=== PATIENT | female | born 1990 | race Caucasian/White ===

== ENCOUNTER 2018-01-18 18:01 | Emergency (ER) | payer OTHER ==
[2018-01-18] MEDS ORDERED: ALBUTEROL SO4 2.5/IPRATROPIUM 0.5 INH SOL 3 ML VIAL.NEB. NEB ONE ×2 (18:18→19:21)
[2018-01-18 18:22] VITALS: BP 142/82; PULSE 116; TEMP 98.4; BMI 25.7
--- NOTE | 2018-01-18 18:24 | PDOC ---
Rapid Medical Evaluation Chief Complaint: Cold Symptoms Time Seen by Provider: 01/18/18 18:16 Medical Evaluation: 01/18/18 18:16 27 year old female with cough nasal congestion and SOB. reports tactile temps at home denies smoking, recent travel. PE: Patient alert ox3. + wheezing A: uri with cough P: duoneb urine chest xray patient to the ER for further management, Discharge Disposition - Diagnosis URI with cough and congestion - Referrals - Patient Instructions - Post Discharge Activity
--- NOTE | 2018-01-18 19:42 | PDOC ---
History of Present Illness - General Chief Complaint: Shortness of Breath Stated Complaint: Cold Symptoms Time Seen by Provider: 01/18/18 18:16 History Source: Patient Exam Limitations: No Limitations - History of Present Illness Initial Comments: 01/18/18 19:33 HISTORY OF PRESENT ILLNESS: This a 27-year-old woman past medical history of depression who presents emergency Department with 2 weeks of nasal congestion, cough, subjective fevers and sore throat. Patient has been taking over-the- counter medications such as NyQuil patient had minimal relief of symptoms. Patient became concerned when she herself audibly wheezing today prior to coming to the emergency department. She denies feeling short of breath, chest pain, headaches, dizziness, abdominal pain, nausea, vomiting. No recent travel or sick contacts. PAST MEDICAL HISTORY: depression SURGICAL HISTORY: Denies ALLERGIES: No known drug allergies REVIEW OF SYSTEMS General/Constitutional: Subjective fevers. Denies chills. Denies weakness, weight change. HEENT: Denies change in vision. Denies ear pain or discharge. Endorses sore throat. Cardiovascular: Denies chest pain or shortness of breath. Respiratory: Reports dry non-productive cough with audible wheezing. Denies hemoptysis. Gastrointestinal: Denies nausea, vomiting, diarrhea or constipation. Denies rectal bleeding. Genitourinary: Denies dysuria, frequency, or change in urination. Musculoskeletal: Denies joint or muscle swelling or pain. Denies neck or back pain. Skin and breasts: Denies rash or easy bruising. Neurologic: Denies headache, vertigo, loss of consciousness, or loss of sensation. Psychiatric: Denies depression or anxiety. Endocrine: Denies increased thirst. Denies abnormal weight change. Hematologic/Lymphatic: Denies anemia, easy bleeding, or history of blood clots. Allergic/Immunologic: Denies hives or skin allergy. Denies latex allergy. PHYSICAL EXAM General Appearance: Well-appearing, appropriately dressed. No apparent distress , no intoxication. HEENT: EOMI, PERRLA, normal ENT inspection, normal voice, pharynx normal. No conjunctival pallor. No photophobia, scleral icterus. TMs with retractions bilaterally. No sinus tenderness. Neck: Supple. Trachea midline. No tenderness, rigidity, carotid bruit, stridor , lymphadenopathy, or thyromegaly. Respiratory/Chest: Lungs CTAB. No shortness of breath, chest tenderness, respiratory distress, accessory muscle use. No crackles, rales, rhonchi, stridor , dullness. Scattered wheezes. Cardiovascular: RRR. S1, S2. No JVD, murmur, bradycardia, tachycardia. Vascular Pulses: Dorsalis-Pedis (R): 2+, Dorsalis-Pedis (L): 2+ Gastrointestinal/Abdominal: Normal bowel sounds. Abdomen soft, non-distended. No tenderness or rebound tenderness. No organomegaly, pulsatile mass, guarding, hernia, hepatomegaly, splenomegaly. Lymphatic: No adenopathy, tenderness. Musculoskeletal/Extremities: Normal inspection. FROM of all extremities, normal capillary refill. Pelvis Stable. No CVA tenderness. No tenderness to extremities, pedal edema, swelling, erythema or deformity. Integumentary: Appropriate color, dry, warm. No cyanosis, erythema, jaundice or rash Neurologic: senior business analyst II-XII intact. Fully oriented, alert. Appropriate mood/affect. Motor strength 5/5. No appreciable EOM palsy, facial droop or sensory deficit. Past History - Past Medical History Allergies/Adverse Reactions: Allergies Allergy/AdvReac Type Severity Reaction Status Date / Time No Known Allergies Allergy Verified 01/18/18 18:17 Home Medications: Ambulatory Orders NK [No Known Home Medication] 01/18/18 COPD: No - Suicide/Smoking/Psychosocial Hx Smoking History: Never smoked *Physical Exam - Vital Signs Last Vital Signs Temp Pulse Resp BP Pulse Ox 98.4 F 116 H 22 H 142/82 94 L 01/18/18 18:20 01/18/18 18:20 01/18/18 18:20 01/18/18 18:20 01/18/18 18:20 ED Treatment Course - ADDITIONAL ORDERS Additional order review: Laboratory Results 01/18/18 19:00 Urine HCG, Qual Negative - Medications Given in the ED: ED Medications Discontinued Medications Generic Name Dose Route Start Last Admin Trade Name Freq PRN Reason Stop Dose Admin Albuterol/Ipratropium 1 amp 01/18/18 18:18 01/18/18 18:21 Duoneb - NEB 01/18/18 18:19 1 amp ONCE ONE Administration Medical Decision Making - Medical Decision Making 01/18/18 20:18 A/P: 27-year-old woman past medical history of depression with 2 weeks of upper respiratory symptoms TMs with retractions noted bilaterally Nasal congestion present with inflamed nasal turbinates Oropharynx erythematous with cobblestoning noted in the posterior oropharynx. No stridor noted Respirations even and unlabored Scattered wheezes present Patient most likely with a upper respiratory viral infection. Given length of symptoms I will perform a chest x-ray to rule out any pneumonia. DuoNeb's 3, chest x-ray, reassess Chest x-rays read by me: Angles clear. No focal consolidations or infiltrates noted. Cardiac silhouette is within normal limits. Repeat lung exam reveals no wheezing and clear lungs. Patient with an upper respiratory infection. I will discharge the patient home with symptomatic treatment which has been discussed with the patient verbalizes understanding of discharge instructions and treatment. Patient was satisfied with her care and all questions have been answered. *DC/Admit/Observation/Transfer Diagnosis at time of Disposition: URI with cough and congestion - Discharge Dispostion Disposition: HOME Condition at time of disposition: Stable Decision to Admit order: No - Referrals - Patient Instructions Additional Instructions: Rest, drink lots of fluids: Teas, water, soups, Pedialyte Saltwater gargles Steamy showers/seem to face break up mucus Avoid contact with others until fevers and cough resolved Lots of handwashing and good hygiene Continue [id number] medications for symptomatic relief Tylenol or Motrin for fever and pain Followup with private physician in one to 2 days as needed Return to emergency department for worsened symptoms, fevers, dehydration - Post Discharge Activity
== END 2018-01-18 20:24 | disposition home or self-care (01) ==
LOC: JERFT 18:01
PROC: 3E0F7GC Introduction of Other Therapeutic Substance into Respiratory Tract, Via Natural or Artificial Opening (ICD-10-PCS; principal; 2018-01-18)
DX: J06.9 Acute upper respiratory infection, unspecified (principal)
CPT/HCPCS: 71046-TC-FY; 84703; 99281-25; J7620

== ENCOUNTER 2018-09-03 10:34 | Inpatient (IN) | payer OTHER ==
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
[2018-09-03] MEDS ORDERED: SODIUM CHLORIDE 1,000 ML IV STA (10:43)
[2018-09-03 10:51] VITALS: BMI 21.6
[2018-09-03 10:58] LABS: BASO % 0.8 % (0-2.0); EOS % 0.5 % (0-4.5); HEMATOCRIT 36.5 % (32.4-45.2); HEMOGLOBIN 12.1 GM/dL (10.7-15.3); LYMPH % 16.6 % (8-40); MCH 28.2 pg (25.7-33.7); MCHC 33.3 g/dl (32.0-36.0); MEAN CELL VOLUME 84.6 fl (80-96); MONO % 3.7 % (3.8-10.2); NEUT % 78.4 % (42.8-82.8); PLATELET COUNT 325 K/MM3 (134-434); RBC 4.31 M/mm3 (3.60-5.2); WHITE BLOOD COUNT 8.7 K/mm3 (4.0-10.0)
[2018-09-03 11:08] LABS: VENOUS PC02 35.1 mmHg (41-51); VENOUS PH 7.38 (7.31-7.41); VENOUS PO2 87.7 mmHg (30-40)
[2018-09-03 11:41] LABS: ALBUMIN 3.5 g/dl (3.4-5.0); ALK PHOS 66 U/L (45-117); ANION GAP 6 MMOL/L (8-16); BILIRUBIN,TOTAL 0.2 mg/dL (0.2-1); BLOOD UREA NITROGEN 12 mg/dL (7-18); CALCIUM 8.7 mg/dL (8.5-10.1); CHLORIDE 108 mmol/L (98-107); CO2 24 mmol/L (21-32); CREATININE 0.7 mg/dL (0.55-1.3); GLUCOSE,RANDOM 97 mg/dL (74-106); MAGNESIUM 2.4 mg/dL (1.8-2.4); POTASSIUM 4.2 mmol/L (3.5-5.1); SGOT/AST 13 U/L (15-37); SGPT/ALT 18 U/L (13-61); SODIUM 139 mmol/L (136-145); TOT PROT 6.5 g/dl (6.4-8.2)
--- NOTE | 2018-09-03 14:36 | HP ---
CHIEF COMPLAINT: lethargy, suspected drug overdose and suicidal attempt PCP: none HISTORY OF PRESENT ILLNESS: Patient sleepy but arousable, history obtained from patient, ED records and brother at bedside 28 yof with PMHx of anxiety, depression, (not on medications) brought in with concerns for drug overdose and suicidal attempt. Per records and family,patient's boyfriend of 5 years comitted suicide this AM. later today, patient was found confused, drowsy at her place by her family, with concerns for unknown drug ingestion from boyfriend's pill bottles. Patient currently waking up, answers questions on frequent reinforcement, states took 4 tablets of her boyfriend's xanax today as an attempt to kill herself. Denies any other drug ingestion or prior h/o IVDU. Last ETOH intake reported 2 weeks ago. ER course was notable for: (1) Poison control contacted (2) Psychiatry consulted, Dr. Parr Recent Travel: denies PAST MEDICAL HISTORY: reported anxiety/depression PAST SURGICAL HISTORY: denies Social History: Smoking: denies Alcohol: 'sometimes', no further elaboration Drugs: denies IVDU, cocaine/marihuana/heroine, Family History: Allergies No Known Allergies Allergy (Verified 09/03/18 10:42) HOME MEDICATIONS: Home Medications Medication Instructions Recorded NK [No Known Home Medication] 01/18/18 REVIEW OF SYSTEMS 12 point ROS attempted but limited given patient's lethargy. Denies a current pain or dyspnea. PHYSICAL EXAMINATION Vital Signs - 24 hr 09/03/18 09/03/18 09/03/18 10:43 11:09 13:47 Temperature 98.6 F 98.0 F Pulse Rate 76 Pulse Rate [ 67 Left] Respiratory 18 18 Rate Blood Pressure 108/70 Blood Pressure 102/73 [Left Arm] O2 Sat by Pulse 100 98 100 Oximetry (%) GENERAL: drowsy, woke up with deep sternal rub, keeps falling back to sleep but responds to most questions on repeat questioning HEAD: Normal with no signs of trauma. EYES: PERRL symmetric bilaterally EARS, NOSE, THROAT: Ears normal, nares patent, oropharynx clear without exudates. Moist mucous membranes. NECK: Normal range of motion, supple, no JVD noted LUNGS: decreased air entry but no rales or wheezing appreciated HEART: Regular rate and rhythm, normal S1 and S2 ABDOMEN: Soft, nontender, not distended, normoactive bowel sounds, no guarding, no rebound, no masses. No hepatomegaly or splenomegaly appreciated. MUSCULOSKELETAL: no spinal tenderness, moves all extremities freely, further exam limited UPPER EXTREMITIES: 2+ pulses, warm, well-perfused. No cyanosis. No clubbing. No peripheral edema. LOWER EXTREMITIES: 2+ pulses, warm, well-perfused. No calf tenderness. No peripheral edema. NEUROLOGICAL: drowsy, woke up with deep sternal rub, keeps falling back to sleep but responds to most questions on repeat questioning, facial symmetry, tongue midline, EOMI, moves all extremities symmetrically, DTR b/l symm, unable to check for sensations currently. Unable to check gait PSYCHIATRIC: opens eyes on loud voice and deep sternal rub, Pos suicidal ideation SKIN: extensive scabs/papules 0.5 cm scattered bilateralupper and lower extremities and face Laboratory Results - last 24 hr 09/03/18 09/03/18 09/03/18 10:45 10:45 10:45 WBC 8.7 RBC 4.31 Hgb 12.1 Hct 36.5 MCV 84.6 MCH 28.2 MCHC 33.3 RDW 14.0 Plt Count 325 MPV 9.0 Absolute Neuts (auto) 6.8 Neutrophils % 78.4 Lymphocytes % 16.6 Monocytes % 3.7 L Eosinophils % 0.5 Basophils % 0.8 Nucleated RBC % 0 VBG pH 7.38 POC VBG pCO2 35.1 L POC VBG pO2 87.7 H VBG HCO3 20.3 L VBG O2 Sat (Sammy) 96.6 H VBG Base Excess -3.6 L Sodium Potassium Chloride Carbon Dioxide Anion Gap BUN Creatinine Est GFR (CKD-EPI)AfAm Est GFR (CKD-EPI)NonAf Random Glucose Lactic Acid Calcium Magnesium Total Bilirubin AST ALT Alkaline Phosphatase Creatine Kinase Creatine Kinase Index CK-MB (CK-2) Troponin I Total Protein Albumin Serum , Qual Negative Salicylates Acetaminophen Alcohol, Quantitative 09/03/18 09/03/18 10:45 10:45 WBC RBC Hgb Hct MCV MCH MCHC RDW Plt Count MPV Absolute Neuts (auto) Neutrophils % Lymphocytes % Monocytes % Eosinophils % Basophils % Nucleated RBC % VBG pH POC VBG pCO2 POC VBG pO2 VBG HCO3 VBG O2 Sat (Sammy) VBG Base Excess Sodium 139 Potassium 4.2 Chloride 108 H Carbon Dioxide 24 Anion Gap 6 L BUN 12 Creatinine 0.7 Est GFR (CKD-EPI)AfAm 136.66 Est GFR (CKD-EPI)NonAf 117.91 Random Glucose 97 Lactic Acid 1.2 Calcium 8.7 Magnesium 2.4 Total Bilirubin 0.2 AST 13 L ALT 18 Alkaline Phosphatase 66 Creatine Kinase 191 Creatine Kinase Index 0.8 CK-MB (CK-2) 1.7 Troponin I < 0.02 Total Protein 6.5 Albumin 3.5 Serum , Qual Salicylates < 1.7 L Acetaminophen < 2.0 L Alcohol, Quantitative < 3.0 EKG NSR, no acute ST-T changes, QTc normal CT brain results reviewed, no acute process ASSESSMENT/PLAN: 28 yof with PMHx of anxiety, depression admitted with AMS, suspected benzodiazepine overdose and Suicidal ideation/attempt. -AMS, suspect encephalopathy from intentional drug overdose -Suspected Intentional benzodiazepine Overdose, r/o co-ingestion -Suicidal ideation/Attempt -Major depression -Anxiety Plan: Waking up, hemodynamics stable. Anion gap/renal function/QTc normal. Alcohol/salicylate/tylenol levels neg. Follow up full drug screen, straight cath for sample, discussed with ED. Poison control contacted from ED, monitor x 24 hours Psychiatry consulted from ED, case was discussed with Dr. Parr, anticipate inpatient psych placement once medical concerns resolve. 1:1, suicidal precautions. NPO, advance diet once mental status improves. IVF Inpatient telemetry. DVTPPx, lovenox Dispo anticipate inpatient psychiatry transfer for ongoing treatment of major depression/Intentional drug overdose once medical concerns resolve. Plan discussed with brother at bedside Care co-ordinated with ED. total admit time spent 65 min. Visit type - Emergency Visit Emergency Visit: Yes ED Registration Date: 09/03/18 Care time: The patient presented to the Emergency Department on the above date and was hospitalized for further evaluation of their emergent condition. - New Patient This patient is new to me today: Yes Date on this admission: 09/03/18 - Critical Care Critical Care patient: No
[2018-09-03] MEDS ORDERED: ENOXAPARIN NA (PORCINE) 40 MG/0.4 ML DISP.SYRIN SQ ONE (15:39)
--- NOTE | 2018-09-03 15:40 | EKG ---
Test Reason : Blood Pressure : / mmHG Vent. Rate : 077 BPM Atrial Rate : 077 BPM P-R Int : 180 ms QRS Dur : 082 ms QT Int : 398 ms P-R-T Axes : 058 060 065 degrees QTc Int : 450 ms NORMAL SINUS RHYTHM SEPTAL INFARCT , AGE UNDETERMINED ABNORMAL ECG NO PREVIOUS ECGS AVAILABLE Confirmed by Mario Dowell MD ([id number]) on 09/03/2018 3:40:09 PM Referred By: Confirmed By:Mario Dowell MD
[2018-09-03] MEDS: DEXTROSE 5%-NORMAL SALINE 1,000 ML IV SCH (15:59)
[2018-09-03 16:12] LABS: EPI CELLS 1.4 /HPF (0-5/HPF); HYALINE CASTS 0 /lpf (0-8); PH,URINE 5.5 (5.0-8.0); URINE APPEARANCE CLEAR; URINE BACTERIA 2685.3 /hpf (NEGATIVE); URINE BILIRUBIN NEGATIVE (NEGATIVE); URINE COLOR YELLOW; URINE GLUCOSE (UA) NEGATIVE (NEGATIVE); URINE KETONE NEGATIVE (NEGATIVE); URINE LEUK ESTERASE NEGATIVE (NEGATIVE); URINE NITRITE POSITIVE (NEGATIVE); URINE PROTEIN NEGATIVE (NEGATIVE); URINE RBC 1 /hpf (0-4); URINE UROBILINOGEN 0.2 mg/dL (0.2-1.0); URINE WBC 1 /hpf (0-5)
[2018-09-03 16:19] LABS: METHADONE, UR NEGATIVE ng/ml (CUTOFF=300); OPIATES, URI NEGATIVE ng/ml (CUTOFF=300); PHENCYCLIDINE,URINE NEGATIVE ng/ml (CUTOFF=25); URINE AMPHETAMINES NEGATIVE ng/ml (CUTOFF=500); URINE BARBITURATES NEGATIVE ng/ml (CUTOFF=200)
[2018-09-03 16:33] LABS: URINE BENZODIAZEPINES POSITIVE ng/ml (CUTOFF=200)
[2018-09-03 16:34] LABS: COCAINE, UR POSITIVE ng/ml (CUTOFF=300)
[2018-09-04] MEDS ORDERED: MELATONIN 5 MG TABLETS PO ONE (02:35)
[2018-09-04 06:40] LABS: BASO % 1.2 % (0-2.0); EOS % 5.1 % (0-4.5); HEMATOCRIT 36.9 % (32.4-45.2); HEMOGLOBIN 12.2 GM/dL (10.7-15.3); LYMPH % 45.1 % (8-40); MCH 27.6 pg (25.7-33.7); MCHC 32.9 g/dl (32.0-36.0); MEAN CELL VOLUME 83.8 fl (80-96); MEAN PLT VOLUME 9.1 fl (7.5-11.1); MONO % 7.9 % (3.8-10.2); NEUT % 40.7 % (42.8-82.8); PLATELET COUNT 268 K/MM3 (134-434); RBC 4.41 M/mm3 (3.60-5.2); RDW 14.1 % (11.6-15.6); WHITE BLOOD COUNT 4.5 K/mm3 (4.0-10.0)
[2018-09-04] MEDS: DEXTROSE 5%-NORMAL SALINE 1,000 ML IV SCH ×2 (06:41→15:45)
[2018-09-04 08:25] LABS: ALBUMIN 3.1 g/dl (3.4-5.0); BILIRUBIN,TOTAL 0.4 mg/dL (0.2-1); CREATININE 0.7 mg/dL (0.55-1.3); MAGNESIUM 2.2 mg/dL (1.8-2.4); PHOSPHOROUS 3.7 mg/dL (2.5-4.9); POTASSIUM 3.7 mmol/L (3.5-5.1); TOT PROT 5.8 g/dl (6.4-8.2)
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
[2018-09-04] MEDS: LORazepam 2 MG/ML SDV VIAL IM PRN ×2 (10:06→16:47)
[2018-09-04] MEDS: CITALOPRAM HYDROBROMIDE 20 MG TABLET (FP) PO SCH (10:14)
[2018-09-04] MEDS: ENOXAPARIN NA (PORCINE) 40 MG/0.4 ML DISP.SYRIN SQ SCH (10:15)
--- NOTE | 2018-09-04 10:19 | PN ---
Progress Note, Physician Chief Complaint: Ms Baker denies cp, sob, n/v. She is very emotional today, when told that she will not be able to go to [facility] or becomes hysterical. - Current Medication List Current Medications: Active Medications Citalopram Hydrobromide (Celexa -) 20 mg PO DAILY [facility] Enoxaparin Sodium (Lovenox -) 40 mg SQ DAILY [facility] Dextrose/Sodium Chloride (D5-Ns -) 1,000 mls @ 100 mls/hr IV ASDIR SUZI Last Admin: 09/04/18 06:41 Dose: 100 mls/hr Lorazepam (Ativan Injection -) 2 mg IM TID PRN PRN Reason: ANXIETY - Objective Vital Signs: Vital Signs Temperature 36.4 C 09/04/18 07:05 Pulse Rate 64 09/04/18 07:05 Respiratory Rate 18 09/04/18 07:05 Blood Pressure 105/46 L 09/04/18 07:05 O2 Sat by Pulse Oximetry (%) 100 09/03/18 22:00 Constitutional: Yes: Well Nourished, Other (emotionally upset and tearful, becomes hysterical when told she is being hospitalized) Cardiovascular: Yes: Other (unable to perform secondary to emotional state and refuses) Respiratory: Yes: Other (unable to perform, as above) Gastrointestinal: Yes: Other (unable to perform, as above) Extremities: Yes: WNL Edema: No Psychiatric: Yes: Alert, Oriented (x3), Agitated Labs: CBC, BMP 09/04/18 06:00 09/04/18 06:00 Problem List - Problems (1) Overdose Assessment/Plan: -patient intentionally took benzodiazepines after finding her committed suicide -poison control was called, recommended monitoring for 24 hours -currently patient is alert and oriented -case d/w Dr Parr, agree with inpatient psychiatric care since patient with suicide attempt -medically stable for transfer to inpatient psychiatric facility -chest x-ray normal Code(s): T50.901A - POISONING BY UNSP DRUG/MEDS/BIOL SUBST, ACCIDENTAL, INIT Qualifiers: Encounter type: initial encounter Injury intent: intentional self-harm Qualified Code(s): T50.902A - Poisoning by unspecified drugs, medicaments and biological substances, intentional self-harm, initial encounter (2) Suicidal behavior Assessment/Plan: -appreciate psychiatry assistance -very agitated and hysterical when discussing transfer to inpatient psychiatry -celexa added by Dr Parr -danilo ativan Code(s): R46.89 - OTHER SYMPTOMS AND SIGNS INVOLVING APPEARANCE AND BEHAVIOR Qualifiers: Attempted self-injury: with attempted self-injury Qualified Code(s): T14.91XA - Suicide attempt, initial encounter (3) Toxic metabolic encephalopathy Assessment/Plan: -secondary to overdose -resolved, suspect patient is at baseline Code(s): G92 - TOXIC ENCEPHALOPATHY Assessment/Plan Patient is a 28 year old who presented with attempted suicide from benzodiazepine overdose. She was lethargic per admission notes, currently this is resolved. She was monitored overnight as recommended per poison control. She was monitored on telemetry and remained in sinus rhythm. She is medically stable for transfer to inpatient psychiatry.
[2018-09-04] MEDS ORDERED: HALOPERIDOL LACTATE 5 MG/ML IM ONE (16:31)
--- NOTE | 2018-09-04 17:14 | EKG ---
Test Reason : Blood Pressure : / mmHG Vent. Rate : 073 BPM Atrial Rate : 073 BPM P-R Int : 130 ms QRS Dur : 074 ms QT Int : 408 ms P-R-T Axes : 039 073 059 degrees QTc Int : 449 ms NORMAL SINUS RHYTHM WITH SINUS ARRHYTHMIA NORMAL ECG WHEN COMPARED WITH ECG OF 03-SEP-2018 16:45, CRITERIA FOR SEPTAL INFARCT ARE NO LONGER PRESENT Confirmed by MASTER TABOR MD ([id number]) on 09/04/2018 5:13:44 PM Referred By: Confirmed By:MASTER TABOR MD
[2018-09-05] MEDS ORDERED: MELATONIN 5 MG TABLETS PO ONE (00:13)
[2018-09-05] MEDS: DEXTROSE 5%-NORMAL SALINE 1,000 ML IV SCH (00:28)
[2018-09-05 06:28] VITALS: BP 137/77; PULSE 76; TEMP 98.2
[2018-09-05] MEDS: LORazepam 2 MG/ML SDV VIAL IM PRN (08:38)
[2018-09-05] MEDS: CITALOPRAM HYDROBROMIDE 20 MG TABLET (FP) PO SCH (09:01)
[2018-09-05] MEDS: ENOXAPARIN NA (PORCINE) 40 MG/0.4 ML DISP.SYRIN SQ SCH (09:01)
--- NOTE | 2018-09-08 15:39 | EKG ---
Test Reason : Blood Pressure : / mmHG Vent. Rate : 073 BPM Atrial Rate : 073 BPM P-R Int : 174 ms QRS Dur : 084 ms QT Int : 416 ms P-R-T Axes : 065 061 064 degrees QTc Int : 458 ms NORMAL SINUS RHYTHM SEPTAL INFARCT (CITED ON OR BEFORE 03-SEP-2018) ABNORMAL ECG WHEN COMPARED WITH ECG OF 03-SEP-2018 10:05, NO SIGNIFICANT CHANGE WAS FOUND Confirmed by DENISE PLUMMER MD ([id number]) on 09/08/2018 3:39:21 PM Referred By: Confirmed By:DENISE PLUMMER MD
== END 2018-09-05 10:55 | DRG 812 ==
LOC: JER 10:34 → JERBED 14:04 → J4S 22:07
PROVIDERS: ADMIT Hospitalist; ATTEND Internal Medicine
DX: T42.4X2A Poisoning by benzodiazepines, intentional self-harm, initial encounter (principal); Y92.89 Other specified places as the place of occurrence of the external cause; F41.8 Other specified anxiety disorders; G93.41 Metabolic encephalopathy
CPT/HCPCS: 36415; 70450-TC; 71045-TC-FY; 80053; 80307; 81003; 82550; 82553; 82803; 83605; 83735; 84100; 84484; 84703; 85025; 87086; 87186; 93005; 93010; 99285-25; J7030